=== PATIENT | male | born 1990 | race African-American/Black ===

== ENCOUNTER 2018-02-19 08:11 | Emergency (ER) | payer SELFPAY ==
[2018-02-19] MEDS ORDERED: DOCUSATE SODIUM 100 MG CAPSULE RT_EAR ONE (10:05)
--- NOTE | 2018-02-19 10:09 | ER Document Report ---
HPI - HPI Patient complains to provider of: r ear pain Onset: Yesterday Onset/Duration: Sudden Quality of pain: Achy Pain Level: 5 Context: Patient states that he was attempting to clean his ear out yesterday and developed pain to right ear canal. Patient complains of continued ear pain since then. Patient denies any fever or blood from ear. Patient denies any drainage. Associated Symptoms: Earache Exacerbated by: Denies Relieved by: Denies Similar symptoms previously: No Recently seen / treated by doctor: No - ROS ROS below otherwise negative: Yes Systems Reviewed and Negative: Yes All other systems reviewed and negative - CONSTITUTIONAL Constitutional: DENIES: Fever, Chills - EENT EENT: REPORTS: Ear Pain - right - GASTROINTESTINAL Gastrointestinal: DENIES: Nausea, Patient vomiting - MUSCULOSKELETAL Musculoskeletal: DENIES: Neck Pain - DERM Skin Color: Normal Skin Problems: None Past Medical History - General Information source: Patient - Social History Smoking Status: Current Every Day Smoker Chew tobacco use (# tins/day): No Frequency of alcohol use: None Drug Abuse: None Family History: Reviewed & Not Pertinent Patient has suicidal ideation: No Patient has homicidal ideation: No - Medical History Medical History: Negative Pulmonary Medical History: Reports: Hx Asthma Renal/ Medical History: Denies: Hx Peritoneal Dialysis Surgical Hx: Negative Vertical Provider Document - CONSTITUTIONAL Agree With Documented VS: Yes Exam Limitations: No Limitations General Appearance: WD/WN, No Apparent Distress - INFECTION CONTROL TRAVEL OUTSIDE OF THE [place] IN LAST 30 DAYS: No - HEENT HEENT: Atraumatic, Normocephalic Notes: Patient with abrasion noted to right external auditory canal, bilateral cerumen impaction - NECK Neck: Normal Inspection - RESPIRATORY Respiratory: Breath Sounds Normal, No Respiratory Distress - CARDIOVASCULAR Cardiovascular: Regular Rate, Regular Rhythm - BACK Back: Normal Inspection - MUSCULOSKELETAL/EXTREMETIES Musculoskeletal/Extremeties: MAEW - NEURO Level of Consciousness: Awake, Alert, Appropriate Motor/Sensory: No Motor Deficit - DERM Integumentary: Warm, Dry Course - Re-evaluation Re-evalutation: 02/19/18 Bilateral ears irrigated, cerumen impaction cleared. Normal TM bilaterally, no swelling noted to external auditory canals. - Vital Signs Vital signs: Temp Pulse Resp BP Pulse Ox 97.8 F 61 12 139/78 H 98 02/19/18 08:16 02/19/18 08:16 02/19/18 08:16 02/19/18 08:16 02/19/18 08:16 Discharge - Discharge Clinical Impression: Impacted cerumen of both ears Abrasion of ear canal Qualifiers: Encounter type: initial encounter Laterality: right Qualified Code(s): S00.411A - Abrasion of right ear, initial encounter Condition: Stable Disposition: HOME, SELF-CARE Instructions: Cerumen Impaction ([facility]), Use of Ear Drops ([facility]) Additional Instructions: Return immediately for any new or worsening symptoms Followup with your primary care provider, call tomorrow to make a followup appointment Prescriptions: Neomy Sulf/Polymyx B Sulf/Hc [Cortisporin Ear Suspension] 4 drop OT QID #1 bottle Referrals: [facility] [Provider Group] - Follow up as needed
[2018-02-19] MEDS ORDERED: DOCUSATE SODIUM 100 MG CAPSULE BTH_EAR ONE (10:42)
[2018-02-19 11:42] VITALS: BP 135/84
== END 2018-02-19 11:42 | disposition home or self-care (01) ==
LOC: ER 08:11
DX: S00.411A Abrasion of right ear, initial encounter (principal); H61.23 Impacted cerumen, bilateral; H92.01 Otalgia, right ear; X58.XXXA Exposure to other specified factors, initial encounter; F17.200 Nicotine dependence, unspecified, uncomplicated; J45.909 Unspecified asthma, uncomplicated
CPT/HCPCS: 99283